=== PATIENT | female | born 1945 | race Caucasian/White ===

== ENCOUNTER → 2017-03-31 | Outpatient (CLI) | payer OTHER ==
--- NOTE | 2017-04-01 12:13 | CT ---
EXAM DESCRIPTION: Abdomen/Pelvis w/wo Contrast CLINICAL HISTORY: PAIN abdomen. COMPARISON: None. TECHNIQUE: Spiral-axial scans at 5.0 - mm intervals from the lung bases through the pubic symphysis, after water - soluble oral contrast, and scans repeated through the same levels after nonionic IV contrast. Coronal and sagittal 2.0 - mm reconstructions. Delayed helical/5.0 - mm scans, same levels. No adverse reactions. Total Exam DLP: 2704.86 mGy-cm. This exam was performed according to our departmental CT dose-optimization program which includes automated exposure control, adjustment of the mA and/or kV according to patient size and/or use of iterative reconstruction technique; to reduce radiation dose to as low as reasonably achievable (ALARA). FINDINGS: Lung bases and pleura: Negative. Liver, Spleen, Stomach, Adrenal glands: 2 mm nonenhancing simple cyst in the caudate lobe superior to the gallbladder fossa. Subcapsular cysts in the lateral segment of the left lobe and a subcentimeter Central cyst in the same segment. Oral contrast in the stomach which is otherwise unremarkable. Also duodenum. Negative Adrenal glands and spleen. Pancreas/Gallbladder/Ducts: Large gallbladder with no wall thickening or adjacent fatty stranding. Common bile duct and pancreas are unremarkable. Kidneys and Ureters: 1 to 2 cm cysts in the left kidney with 3 cm and 1 cm cyst in the right kidney. No radiodense stones hydronephrosis or perinephric fluid. Pelvic Organs: Large heterogeneous poorly enhancing mass with relatively well-defined borders extending from the inferior pelvis at the level of the pubic symphysis to the mid abdomen at the level of the lower pole of the right kidney. Displacing pelvic organs, small bowel and colon. Also displacing the anterior midline abdominal wall in the posterior margin is abutting the anterior L5-S1 disc space. 23 cm craniocaudal and maximum transverse diameter is 14.4 x 12.8 cm. Calcifications are noted in the anterior left aspect of the central aspect of the mass. Also abutting the inferior posterior margin. No fluid in the cul-de-sac. No IV contrast in the urinary bladder or distal ureters on the delayed image. Focal areas of nonenhancement in the upper margin of the mass appears similar to fibroids. At the lower margin of the mass, is a low-density object containing air bubbles. The mass is anterior to the rectosigmoid. Possible ovarian tissue versus lymph nodes in the left adnexa anterior to the left iliac vessels and distal left psoas muscle. Similar appearance in the right adnexa may represent right ovary or lymph nodes.. Mesentery: No free fluid in the pelvis or abdomen. No free air. No definite fascial thickening or stranding. Aorta: Atherosclerotic calcification and normal caliber with small periaortic nodes. Small Bowel: Displaced by lower abdominal pelvic mass. Normal caliber with oral contrast distally. Terminal Ileum/Cecum: Normal caliber containing oral contrast. Oral contrast and gas in the appendix which is also normal caliber with normal density of the surrounding fat. Colon: Oral contrast reaches the sigmoid colon. Diverticula with normal wall thickness no distention and no abnormal fat stranding. The distal sigmoid abuts the right lateral aspect of the mass. Spine and Bony Pelvis: Lumbar spondylosis most prominent at L2-3. No bone destruction. Pubic symphysitis. Lower thoracic spondylosis. Gas formation and periarticular sclerosis in the bilateral SI joints. No bone destruction. . Abdominal Wall/Back Soft Tissues: Paraumbilical fatty hernia approximately 2 cm in width and not containing bowel. Anterior displacement of the umbilical region by the pelvic mass. IMPRESSION: 1. Large mass with poor enhancement and heterogeneous density extending from the inferior pelvis into the mid abdomen displacing adjacent organs. Calcifications within the mass. No contrast in the urinary bladder. Difficult to determine if this mass is originating from urinary bladder, uterus, or ovarian tissue. Appearance is more suggestive of a gynecologic origin, probably uterus. No free fluid in the pelvis and no significant fatty stranding around the mass. No hydronephrosis or hydroureter. Low-density in the inferior mass with air bubbles could represent an abscess or debris in the vagina. Consider cystoscopy, urologic and gynecologic consult. 2. Diverticulosis of the sigmoid colon without complications. No bowel obstruction. 3. Periumbilical hernia containing mesentery but no bowel. 4. Lumbar and thoracic spondylosis. 5. Hepatic and renal cysts. CRITICAL COMMUNICATION: The critical value was discussed directly by phone with Dr. Colby Monk at approximately 1205 hours, on April 01, 2017. Electronically signed by: aZne Esparza MD 04/01/2017 12:12 PM CDT
== END | disposition home or self-care (01) ==
LOC: CT 10:49
PROVIDERS: ATTEND Family Medicine
DX: R10.9 Unspecified abdominal pain (principal)

== ENCOUNTER → 2017-12-14 | Outpatient (CLI) | payer OTHER | LOC: GMAL 14:44 | PROVIDERS: ATTEND Family Medicine | DX: E11.65 Type 2 diabetes mellitus with hyperglycemia (principal); R79.89 Other specified abnormal findings of blood chemistry; D50.8 Other iron deficiency anemias; E55.9 Vitamin D deficiency, unspecified ==

== ENCOUNTER → 2019-12-23 | Outpatient (CLI) | payer OTHER | LOC: GMAL 10:16 | PROVIDERS: ATTEND Family Medicine | DX: D51.3 Other dietary vitamin B12 deficiency anemia (principal); E55.9 Vitamin D deficiency, unspecified; I10 Essential (primary) hypertension; Z79.899 Other long term (current) drug therapy ==

== ENCOUNTER → 2020-07-02 | Outpatient (CLI) | payer OTHER | LOC: GMAL 14:37 | PROVIDERS: ATTEND Family Medicine | DX: D51.3 Other dietary vitamin B12 deficiency anemia (principal); E55.9 Vitamin D deficiency, unspecified; R53.83 Other fatigue; E11.9 Type 2 diabetes mellitus without complications; Z79.899 Other long term (current) drug therapy; Z20.828 Contact with and (suspected) exposure to other viral communicable diseases ==